=== PATIENT | female | born 1990 | race American Indian/Alaskan Native ===

== ENCOUNTER 2018-09-27 11:06 | Emergency (ER) | payer MEDICAID, SELFPAY ==
[2018-09-27 11:13] VITALS: BP 128/65
[2018-09-27] MEDS ORDERED: DELTASONE PO ONE (12:13)
[2018-09-27] MEDS ORDERED: DUONEB *Not for PRN Use IH ONE (12:13)
--- NOTE | 2018-09-27 12:14 | Emergency Department Report ---
ED Asthma HPI - General Chief Complaint: Dyspnea/Respdistress Stated Complaint: ASTHMA Time Seen by Provider: 09/27/18 12:06 Source: patient Mode of arrival: Ambulatory Limitations: No Limitations - History of Present Illness Initial Comments: This is a 28-year-old -[place] female presents with wheezing and shortness of breath since this morning. Past medical history of asthma. She woke up around 0400 short of breath, wheezing, and coughing. She used her last nebulized solution treatment around 4:00 this morning. She haven't had a albute rol inhaler in years because she can't afford it without insurance. She usually come to the emergency room for an inhaler and treatment during this time of the year when her asthma flares. She denies chest pain, myalgia, fever, congestion or rhinorrhea. MD Complaint: shortness of breath, wheezing -: This morning Time: 04:00 Asthma History: childhood onset Severity: mild Context: ran out of meds Associated Symptoms: dry cough. denies: productive cough, fever, chest pain, hemoptysis, leg edema, syncope Treatments Prior to Arrival: inhaled bronchodilator - Related Data Current Asthma Therapy: inhaled bronchodilator Previous Rx's Medication Instructions Recorded Last Taken Type Cyclobenzaprine [Flexeril] 10 mg PO TID PRN #15 tablet 10/10/15 Unknown Rx traMADol [Ultram] 50 mg PO Q4HR PRN #20 tablet 10/10/15 Unknown Rx ALBUTEROL Inhaler(NF) [VENTOLIN 1 puff IH Q4-6H PRN #1 inha 09/27/18 Unknown Rx Inhaler(NF)] ALBUTEROL NEB's [Proventil 0.083% 2.5 mg IH TID PRN #100 ml 09/27/18 Unknown Rx NEBS] Prednisone [predniSONE 10 mg 10 mg PO .TAPER #1 tab.ds.pk 09/27/18 Unknown Rx (6-Day Pack, 21 Tabs)] Allergies Allergy/AdvReac Type Severity Reaction Status Date / Time No Known Allergies Allergy Unverified 10/10/15 12:14 ED Review of Systems ROS: Stated complaint: ASTHMA Other details as noted in HPI Constitutional: denies: chills, fever ENT: denies: ear pain, throat pain, congestion Respiratory: cough, shortness of breath, wheezing Cardiovascular: denies: chest pain, palpitations Gastrointestinal: denies: abdominal pain, nausea, diarrhea Neurological: denies: headache, weakness, paresthesias Psychiatric: denies: anxiety, depression ED Past Medical Hx - Past Medical History Hx Asthma: Yes - Surgical History Past Surgical History?: Yes Additional Surgical History: C section - Social History Smoking Status: Current Every Day Smoker Substance Use Type: None - Medications Home Medications: Home Medications Medication Instructions Recorded Confirmed Last Taken Type Cyclobenzaprine [Flexeril] 10 mg PO TID PRN #15 tablet 10/10/15 Unknown Rx traMADol [Ultram] 50 mg PO Q4HR PRN #20 tablet 10/10/15 Unknown Rx ALBUTEROL Inhaler(NF) [VENTOLIN 1 puff IH Q4-6H PRN #1 inha 09/27/18 Unknown Rx Inhaler(NF)] ALBUTEROL NEB's [Proventil 0.083% 2.5 mg IH TID PRN #100 ml 09/27/18 Unknown Rx NEBS] Prednisone [predniSONE 10 mg 10 mg PO .TAPER #1 tab.ds.pk 09/27/18 Unknown Rx (6-Day Pack, 21 Tabs)] ED Physical Exam - General Limitations: No Limitations General appearance: alert, in no apparent distress, obese - ENT ENT exam: Present: mucous membranes moist - Respiratory Respiratory exam: Present: wheezes. Absent: respiratory distress, rales, rhonchi, stridor, chest wall tenderness, accessory muscle use, decreased breath sounds, prolonged expiratory - Cardiovascular Cardiovascular Exam: Present: regular rate, normal rhythm. Absent: systolic murmur, diastolic murmur, rubs, gallop - GI/Abdominal GI/Abdominal exam: Present: soft, normal bowel sounds - Neurological Exam Neurological exam: Present: alert, oriented X3 - Psychiatric Psychiatric exam: Present: normal affect, normal mood - Skin Skin exam: Present: warm, dry, intact, normal color. Absent: rash ED Course Vital Signs 09/27/18 09/27/18 11:10 12:37 Temperature 98.1 F Pulse Rate 84 Pulse Rate [ 77 Anterior] Respiratory 18 Rate Respiratory 19 Rate [Anterior] Blood Pressure 128/65 O2 Sat by Pulse 98 Oximetry ED Medical Decision Making - Medical Decision Making 28 y.o. female that presents with SOB and wheezing since this morning. History of Asthma. Noncompliant with medication. She ran out of albuterol inhaler years ago and albuterol neb solution this morning. Patient examined by me and in no distress. Vitals stable. Given duoneb treatment once and prednisone 60 mg po once in ER. Wheezes resolved. Asthma exacerbation, Start albuterol neb solution and prednisone taper. Discharged home stable. Follow up with [facility] for further refills. Critical care attestation.: If time is entered above; I have spent that time in minutes in the direct care of this critically ill patient, excluding procedure time. ED Disposition Clinical Impression: Shortness of breath Asthma exacerbation Qualifiers: Asthma severity: mild Asthma persistence: intermittent Qualified Code(s): J45.21 - Mild intermittent asthma with (acute) exacerbation Disposition: TO HOME OR SELFCARE Is pt being admited?: No Does the pt Need Aspirin: No Condition: Stable Instructions: Asthma (ED) Additional Instructions: It is important to use inhaler or have active albuterol inhaler and avoiding asthma triggers. Complete full course of prednisone steroids as prescribed. Follow up with Primary Care Provider in 24-72 hours. Prescriptions: ALBUTEROL Inhaler(NF) [VENTOLIN Inhaler(NF)] 1 puff IH Q4-6H PRN #1 inha PRN Reason: Shortness Of Breath ALBUTEROL NEB's [Proventil 0.083% NEBS] 2.5 mg IH TID PRN #100 ml PRN Reason: Wheezing Prednisone [predniSONE 10 mg (6-Day Pack, 21 Tabs)] 10 mg PO .TAPER #1 tab.ds.pk Referrals: [facility] [place] [Outside] - 3-5 Days [facility] [Outside] - 3-5 Days [facility] [Outside] - 3-5 Days Forms: Work/School Release Form(ED) Time of Disposition: 13:37
== END 2018-09-27 13:49 | disposition home or self-care (01) ==
LOC: ED 11:06
DX: J45.21 Mild intermittent asthma with (acute) exacerbation (principal); F17.200 Nicotine dependence, unspecified, uncomplicated
CPT/HCPCS: 99282; J7512